=== PATIENT | female | born 1985 | race Caucasian/White ===

== ENCOUNTER 2020-05-22 18:54 | Emergency (ER) | payer OTHER, MEDICAID ==
[2020-05-22 20:23] LABS: Absolute Neutrophil Ct (ANC) 8.54 (1.4-6.9); BASOPHIL % 0.1 % (0.0-0.4); Basophil (Absolute #) 0.01 (0-0.4); Eosinophil % 0.2 % (0.00-5.0); Eosinophil (Absolute #) 0.02 (0-0.5); Hematocrit 43.2 % (35-47); Hemoglobin 14.3 gm/dl (12.0-16.0); Lymphocyte (Absolute #) 2.57 (1.0-4.6); Lymphocytes % 21.6 % (24.0-44.0); Mean Cell Volume 85.9 fl (78-100); Mean Corpuscular Hemoglobin 28.4 pg (26-32); Mean Corpuscular Hgb Concent. 33.1 g/dl (32-36); Mean Platelet Volume 12.2 fl (7.5-11.0); Monocyte (Absolute #) 0.75 (0.0-1.3); Monocytes % 6.3 % (0.0-12.0); Neutrophil % 71.8 % (36.0-66.0); Platelet Count 213 K/mm3 (150-450); Red Blood Count 5.03 M/mm3 (4.1-5.4); Red Cell Distribution Width 15.2 % (11.5-14.0); White Blood Count 11.9 K/mm3 (4.0-10.5)
[2020-05-22 20:32] LABS: INR 1.04 (0.8-3.0); PROTIME 11.7 SECONDS (9.95-12.35)
[2020-05-22 20:35] LABS: PTT 28.4 SECONDS (25.3-37.0)
[2020-05-22 20:36] LABS: ALBUMIN 4.6 g/dL (3.5-5.0); ALKALINE PHOSPHATASE 76 U/L (38-126); ANION GAP 14.2 MEQ/L (5-15); BLOOD UREA NITROGEN 9 mg/dL (7-17); CHLORIDE 103 mmol/L (98-107); Calcium 9.5 mg/dL (8.4-10.2); Carbon Dioxide 25 mmol/L (22-30); Creatinine 1 0.64 mg/dL (0.52-1.04); Glucose 93 mg/dL (74-106); Potassium 3.7 mmol/L (3.5-5.1); SGOT/AST 47 U/L (14-36); SGPT/ALT 58 U/L (0-35); SODIUM 139 mmol/L (137-145); Total Protein 7.8 g/dL (6.3-8.2)
[2020-05-22] MEDS ORDERED: Rhogam Plus 300 MCG IM ONE (21:25)
--- NOTE | 2020-05-22 21:30 | ERPHSYRPT ---
- History of Present Illness Time Seen by Provider: 05/22/20 19:25 Patient Subjective Stated Complaint: pt states she has been having lower abd cramping and bleeding. states she has been passing clots today. Triage Nursing Assessment: pt alert and oriented, answers questions approp. pt ambulatory with steady gait noted. respirations nonlabored with lungs cta.abd soft and nontender. Physician History: Patient is a 3 para 2 white female with a last menstrual period of 03/25/2020 with a complaint of bleeding passage of some clots and spotting for 3 days. The cramping seems to be coming and going. Is Rh- per the patient. Think she is 7 to 8 weeks . Timing/Duration: day(s) (5) Activites at Onset: none Quality: cramping Onset Location: pelvic pain Pain Radiation: none Severity of Pain-Max: moderate Severity of Pain-Current: moderate Sexual intercourse history: single partner Modifying Factors: Improves With: nothing Associated Symptoms: denies symptoms Allergies/Adverse Reactions: No Known Drug Allergies Allergy (Verified 05/22/20 19:31) Hx Tetanus, Diphtheria Vaccination/Date Given: Yes Hx Influenza Vaccination/Date Given: Yes Hx Pneumococcal Vaccination/Date Given: No Travel Risk - International Travel Have you traveled outside of the country in past 3 weeks: No (N) If Yes, where;: N - Coronavirus Screening Close contact with a COVID-19 positive Pt in past 14-21 Days: No - Review of Systems Constitutional: No Fever, No Chills Eyes: No Symptoms Ears, Nose, & Throat: No Symptoms Respiratory: No Cough, No Dyspnea Cardiac: No Chest Pain, No Edema, No Syncope Abdominal/Gastrointestinal: No Abdominal Pain, No Nausea, No Vomiting, No Diarrhea Genitourinary Symptoms: , Vaginal Bleeding, No Dysuria Musculoskeletal: No Back Pain, No Neck Pain Skin: No Rash Neurological: No Dizziness, No Focal Weakness, No Sensory Changes Psychological: No Symptoms Endocrine: No Symptoms All Other Systems: Reviewed and Negative - Past Medical History Pertinent Past Medical History: No - Past Surgical History Past Surgical History: No - Social History Smoking Status: Never smoker Exposure to second hand smoke: No Drug Use: none Patient Lives Alone: No - Female History Hx Last Menstrual Period: 03/25/20 Hx Now: Yes Gestational Age: 7 weeks - Nursing Vital Signs Nursing Vital Signs: Initial Vital Signs Temperature 98.4 F 08/07/20 19:18 Pulse Rate 102 H 05/22/20 19:18 Respiratory Rate 16 05/22/20 19:18 Blood Pressure 123/80 05/22/20 19:18 O2 Sat by Pulse Oximetry 97 05/22/20 19:18 Pain Scale Pain Intensity 5 - Physical Exam General Appearance: mild distress, alert Eye Exam: PERRL/EOMI, eyes nml inspection Ears, Nose, Throat Exam: normal ENT inspection, TMs normal, pharynx normal, moist mucous membranes Neck Exam: normal inspection, non-tender, supple, full range of motion Respiratory Exam: normal breath sounds, lungs clear, No respiratory distress Cardiovascular Exam: regular rate/rhythm, normal heart sounds, normal peripheral pulses Gastrointestinal/Abdomen Exam: soft, No tenderness, No mass Pelvic Exam: other (Cervix long and closed), No adnexal tenderness, No adnexal mass, No cervical motion tenderness Back Exam: normal inspection, normal range of motion, No CVA tenderness, No vertebral tenderness Extremity Exam: normal inspection, normal range of motion, pelvis stable Neurologic Exam: alert, oriented x 3, cooperative, brush and broom clipper II-XII nml as tested, normal mood/affect, sensation nml, No motor deficits Skin Exam: normal color, warm, dry Lymphatic Exam: No adenopathy SpO2: 99 - Course Nursing assessment & vital signs reviewed: Yes - Radiology Ultrasound Exam Pelvis Ultrasound: Other (Per the tech a gestational sac and10 historian: Forgot heartbeat was observed) Ordered Tests: Active Orders 24 hr Category Date Time Status OB <14 WKS ADDL GESTATION [US] Stat Exams 05/22/20 Ordered CBC W DIFF Stat Lab 05/22/20 20:19 Completed CMP Stat Lab 05/22/20 20:19 Completed HCG QUALITATIVE,SERUM Stat Lab 05/22/20 20:19 Completed HCG, Quantitative (Inhouse) Stat Lab 05/22/20 20:20 Completed PT INR [PROTIME WITH INR] Stat Lab 05/22/20 20:19 Completed PTT Stat Lab 05/22/20 20:19 Completed Medication Summary Discontinued Medications Generic Name Dose Route Start Last Admin Trade Name Freq PRN Reason Stop Dose Admin Rho Immune Globulin 300 mcg 05/22/20 21:25 Rhogam Plus 300 Mcg IM 05/22/20 21:26 .ONCE ONE Lab/Rad Data: Laboratory Result Diagrams 05/22/20 20:19 05/22/20 20:19 Laboratory Results 05/22/20 05/22/20 05/22/20 Range/Units 20:20 20:19 20:19 WBC (4.0-10.5) K/mm3 RBC (4.1-5.4) M/mm3 Hgb (12.0-16.0) gm/dl Hct (35-47) % MCV (78-100) fl MCH (26-32) pg MCHC (32-36) g/dl RDW (11.5-14.0) % Plt Count (150-450) K/mm3 MPV (7.5-11.0) fl Gran % (36.0-66.0) % Eos # (Auto) (0-0.5) Absolute Lymphs (auto) (1.0-4.6) Absolute Monos (auto) (0.0-1.3) Lymphocytes % (24.0-44.0) % Monocytes % (0.0-12.0) % Eosinophils % (0.00-5.0) % Basophils % (0.0-0.4) % Absolute Granulocytes (1.4-6.9) Basophils # (0-0.4) PT (9.95-12.35) SECONDS INR (0.8-3.0) APTT (25.3-37.0) SECONDS Sodium (137-145) mmol/L Potassium (3.5-5.1) mmol/L Chloride (98-107) mmol/L Carbon Dioxide (22-30) mmol/L Anion Gap (5-15) MEQ/L BUN (7-17) mg/dL Creatinine (0.52-1.04) mg/dL Estimated GFR ML/MIN Glucose (74-106) mg/dL Calcium (8.4-10.2) mg/dL Total Bilirubin (0.2-1.3) mg/dL AST (14-36) U/L ALT (0-35) U/L Alkaline Phosphatase (38-126) U/L Serum Total Protein (6.3-8.2) g/dL Albumin (3.5-5.0) g/dL Beta HCG, Quant 78043 mIU/ml Serum , Qual POSITIVE (Negative) Rh Factor NEGATIVE 05/22/20 05/22/20 05/22/20 Range/Units 20:19 20:19 20:19 WBC 11.9 H (4.0-10.5) K/mm3 RBC 5.03 (4.1-5.4) M/mm3 Hgb 14.3 (12.0-16.0) gm/dl Hct 43.2 (35-47) % MCV 85.9 (78-100) fl MCH 28.4 (26-32) pg MCHC 33.1 (32-36) g/dl RDW 15.2 H (11.5-14.0) % Plt Count 213 (150-450) K/mm3 MPV 12.2 H (7.5-11.0) fl Gran % 71.8 H (36.0-66.0) % Eos # (Auto) 0.02 (0-0.5) Absolute Lymphs (auto) 2.57 (1.0-4.6) Absolute Monos (auto) 0.75 (0.0-1.3) Lymphocytes % 21.6 L (24.0-44.0) % Monocytes % 6.3 (0.0-12.0) % Eosinophils % 0.2 (0.00-5.0) % Basophils % 0.1 (0.0-0.4) % Absolute Granulocytes 8.54 H (1.4-6.9) Basophils # 0.01 (0-0.4) PT 11.7 (9.95-12.35) SECONDS INR 1.04 (0.8-3.0) APTT 28.4 (25.3-37.0) SECONDS Sodium 139 (137-145) mmol/L Potassium 3.7 (3.5-5.1) mmol/L Chloride 103 (98-107) mmol/L Carbon Dioxide 25 (22-30) mmol/L Anion Gap 14.2 (5-15) MEQ/L BUN 9 (7-17) mg/dL Creatinine 0.64 (0.52-1.04) mg/dL Estimated GFR > 60.0 ML/MIN Glucose 93 (74-106) mg/dL Calcium 9.5 (8.4-10.2) mg/dL Total Bilirubin 0.60 (0.2-1.3) mg/dL AST 47 H (14-36) U/L ALT 58 H (0-35) U/L Alkaline Phosphatase 76 (38-126) U/L Serum Total Protein 7.8 (6.3-8.2) g/dL Albumin 4.6 (3.5-5.0) g/dL Beta HCG, Quant mIU/ml Serum , Qual (Negative) Rh Factor - Progress Progress: unchanged Air Movement: good Blood Culture(s) Obtained: No Antibiotics given: No - Departure Departure Disposition: Home Clinical Impression: Threatened miscarriage in early Condition: Stable Critical Care Time: No Referrals: NI SORIANO NP [Primary Care Provider] - Instructions: Threatened Miscarriage (DC)
[2020-05-22 21:39] VITALS: BP 122/91; PULSE 78; O2SAT 98
--- NOTE | 2020-05-22 22:00 | XRAY ---
Indication: Bleeding and cramping. Two-dimensional transabdominal and transvaginal early OB ultrasound performed. Comparison: None There is a single intrauterine gestational sac with mean sac diameter 0.84 cm, too small to calculate gestational age. Single pole with mean crown-rump length 0.42 cm corresponding to 6 weeks 1 day. heart rate 91 bpm. [employer] notes gestational sac at the level of the fundus beginning of exam and more inferior at the end of the exam. No subchronic fluid collection. Cervix appears closed. Left and right ovaries sonographically unremarkable with normal perfusion. Impression: Single intrauterine measuring 6 weeks 1 day. Expected date confinement is January 14, 2021. Slow heart tones recorded. Gestational sac appears mobile as detailed. Clinical history and sonographic features are concerning for impending . Comment: Preliminary report was given to ordering clinician, Dr. Caceres following the exam.
== END 2020-05-22 22:10 | disposition home or self-care (01) ==
LOC: ED 18:54
DX: O20.0 Threatened abortion (principal); Z3A.01 Less than 8 weeks gestation of pregnancy
CPT/HCPCS: 36415; 76801; 80053; 81025; 84702; 85025; 85610; 85730; 86901; 96372; 99283; J2790